=== PATIENT | female | born 1970 | race Caucasian/White ===

== ENCOUNTER 2024-09-01 08:01 | Day surgery (SDC) | payer OTHER ==
[~2024-09-01] VITALS: Ht 154.9 cm; Wt 87.4 kg
[~2024-09-01 08:01] MED LIST: Imitrex100 MG PO; LORAZEPAM0.5 MG PO; ONDA4ODT MM; PROP10 PO; TERB250 PO; [UNRECOGNIZED DRUG - OTHER] PO
[2024-09-01] MEDS ORDERED: Cymbalta20 MG PO (08:23)
[2024-09-01 08:26] VITALS: BP 161/100
[2024-09-01] MEDS ORDERED: NS 100 ML IV ONE (08:49)
[2024-09-01] MEDS ORDERED: Heparin Sodium 1000 Units/ML 10ML MDV ONE (08:49)
[2024-09-01] MEDS ORDERED: Lidocaine 2%-Epineph 1:100000 20 ML MDV ONE (09:28)
[2024-09-01 09:59] VITALS: BP 155/89
--- NOTE | 2024-09-01 10:05 | NUR ---
PT ARRIVES BACK TO [employer] FILE CL[employer], ALERT AND ORIENTED NO SEDATION USED. IV REMOVED CATHTER INTACT. AWAITING PT S/O TO BRING CELL PHONE TO GET SET UP WITH [facility]. VSS.
--- NOTE | 2024-09-01 10:24 | NUR ---
PT DRESSED S/O TO BEDSIDE. WORKING WITH [employer] REP TO GET [facility] SET UP ON PHONE. DISCHARGE INSTRUCTIONS REVIEWED ALONG WITH FOLLOW UP APPOINTMENTS.
== END 2024-09-01 10:00 | disposition home or self-care (01) ==
LOC: MHTC 08:01 → ORSCMMR 08:02 → MHTC 08:05
DX: G90.A Postural orthostatic tachycardia syndrome [POTS] (principal); M79.7 Fibromyalgia; G43.909 Migraine, unspecified, not intractable, without status migrainosus; J45.909 Unspecified asthma, uncomplicated; Z79.899 Other long term (current) drug therapy; Z88.5 Allergy status to narcotic agent
CPT/HCPCS: 33285; C1764; J1644

== ENCOUNTER 2024-09-10 18:40 | Emergency (ER) | payer OTHER ==
[~2024-09-10] VITALS: Ht 154.9 cm; Wt 84.4 kg
[~2024-09-10 18:40] MED LIST changes: +Cymbalta20 MG PO
[2024-09-10 19:02] VITALS: BP 177/107
[2024-09-10] MEDS ORDERED: Dexamethasone Sod Phos 10 MG/ML 1ML VIAL IV ONE (19:10)
[2024-09-10] MEDS ORDERED: Prochlorperazine Edisylate 10 mg Vial IV ONE (19:10)
[2024-09-10] MEDS ORDERED: Ketorolac Tromethamine 15mg Vial IV ONE (19:10)
[2024-09-10] MEDS ORDERED: DiphenhydrAMINE HCl 50 MG/ML 1ML Vial IV ONE (19:10)
[2024-09-10] MEDS ORDERED: NS 1,000 ML IV SCH (20:00)
== END 2024-09-10 21:45 | disposition home or self-care (01) ==
LOC: ER 18:40
DX: R51.9 Headache, unspecified (principal); Z79.02 Long term (current) use of antithrombotics/antiplatelets; Z79.899 Other long term (current) drug therapy; Z88.5 Allergy status to narcotic agent
CPT/HCPCS: 96374; 96375; 99283-25; J0780; J1100; J1200; J1885; J7030

== ENCOUNTER 2024-09-22 18:54 | Emergency (ER) | payer OTHER ==
[~2024-09-22] VITALS: Ht 154.9 cm; Wt 88.5 kg
[2024-09-22 19:21] VITALS: BP 142/94
[2024-09-22] MEDS ORDERED: DiphenhydrAMINE HCl 50 MG/ML 1ML Vial IV ONE (20:15)
[2024-09-22] MEDS ORDERED: Ketorolac Tromethamine 30mg Vial IV ONE (20:15)
[2024-09-22] MEDS ORDERED: Prochlorperazine Edisylate 10 mg Vial IV ONE (20:15)
[2024-09-22] MEDS ORDERED: NS 1,000 ML IV SCH (20:15)
[2024-09-22] MEDS ORDERED: Dexamethasone Sod Phos 10 MG/ML 1ML VIAL IV ONE (20:15)
== END 2024-09-22 21:27 | disposition home or self-care (01) ==
LOC: ER 18:54
DX: G44.229 Chronic tension-type headache, not intractable (principal); Z88.5 Allergy status to narcotic agent; Z79.899 Other long term (current) drug therapy
CPT/HCPCS: 96374; 96375; 99283-25; J0780; J1100; J1200; J1885; J7030

== ENCOUNTER 2024-11-09 18:22 | Emergency (ER) | payer OTHER ==
[~2024-11-09] VITALS: Ht 154.9 cm; Wt 88.5 kg
[2024-11-09 18:39] VITALS: BP 163/83
[2024-11-09] MEDS ORDERED: Diazepam 5 MG Tab PO ONE (18:45)
[2024-11-09] MEDS ORDERED: Ketorolac Tromethamine 15mg Vial IV ONE (18:45)
[2024-11-09] MEDS ORDERED: Prochlorperazine Edisylate 10 mg Vial IV ONE (18:45)
[2024-11-09] MEDS ORDERED: Lactated Ringer's 1,000 ML IV ONE (18:45)
[2024-11-09] MEDS ORDERED: NS 1,000 ML IV SCH (19:00)
[2024-11-09 19:08] LABS: BASOPHILS ABSOLUTE AUTO 0.06 K/mm3 (0.00-0.23); BASOPHILS PERCENT AUTO 1 % (0-2); EOSINOPHILS ABSOLUTE AUTO 0.25 K/mm3 (0.00-0.68); EOSINOPHILS PERCENT AUTO 4 % (0-6); Hematocrit 44.2 % (33.0-51.0); Hemoglobin 15.1 g/dL (11.5-16.0); IMMATURE GRAN ABSOLUTE AUTO 0.05 K/mm3 (0.00-0.10); IMMATURE GRAN PERCENT AUTO 1 % (0-1); LYMPHOCYTES ABSOLUTE AUTO 1.84 K/mm3 (0.84-5.20); LYMPHOCYTES PERCENT AUTO 26 % (21-46); MONOCYTES ABSOLUTE AUTO 0.39 K/mm3 (0.16-1.47); MONOCYTES PERCENT AUTO 6 % (4-13); Mean Corpuscular HGB 28.5 pg (26.0-34.0); Mean Corpuscular HGB Conc 34.2 g/dL (31.5-36.5); Mean Corpuscular Volume 83 fL (80-100); Mean Platelet Volume 8.3 fL (9.1-12.4); NEUTROPHILS ABSOLUTE AUTO 4.52 K/mm3 (1.96-9.15); NEUTROPHILS PERCENT AUTO 64 % (41-73); Platelet Count 249 K/mm3 (150-400); RDW Coefficient Variation 12.7 % (11.7-14.2); RDW Standard Deviation 38.5 fL (35.1-46.3); White Blood Cell Count 7.11 K/mm3 (4.00-11.30)
[2024-11-09 19:27] LABS: Albumin/Globulin Ratio 1.2 (0.8-1.8); Bilirubin, Total 0.3 mg/dL (0.1-1.0); Bun/Creatinine Ratio 22.5 (12.0-20.0); Calcium, Blood 9.4 mg/dL (8.5-10.1); Creatinine, Blood 0.71 mg/dL (0.40-1.00); Globulin, Blood 3.4 g/dL (2.2-4.0); Potassium, Blood 3.9 mmol/L (3.5-5.5); Total Protein, Blood 7.4 g/dL (6.4-8.2)
[2024-11-09] MEDS ORDERED: Robaxin750 MG PO (20:06)
== END 2024-11-09 20:09 | disposition home or self-care (01) ==
LOC: ER 18:22
PROVIDERS: Student in an Organized Health Care Education/Training Program
DX: G43.909 Migraine, unspecified, not intractable, without status migrainosus (principal); M54.2 Cervicalgia; G89.29 Other chronic pain; Z88.5 Allergy status to narcotic agent; Z79.899 Other long term (current) drug therapy
CPT/HCPCS: 80053; 85025; 96361; 96374; 96375; 99283-25; A9270; J0780; J1885; J7030